=== PATIENT | female | born 1985 | race Caucasian/White ===

== ENCOUNTER 2022-10-09 19:45 | Inpatient (IN) ==
[2022-10-09] MEDS ORDERED: LACTATED RINGER'S 1,000 ML IV PRN (19:59)
[2022-10-09] MEDS ORDERED: OXYTOCIN 30 UNITS/500 ML BAG IV PRN ×2 (19:59→21:22)
[2022-10-09] MEDS ORDERED: LIDOCAINE 1% LOCAL 20 ML VIAL INFIL PRN (19:59)
[2022-10-09 20:23] LABS: Hematocrit (blood only) 34.1 % (34.1-44.9); Mean Corpuscular Hemoglobin 31.5 pg (25.0-34.0); Mean Corpuscular Hgb Conc 35.2 g/dL (32.0-36.0); Mean Corpuscular Volume 89.5 fL (80.0-100.0); Mean Platelet Volume 8.8 fL (9.4-12.3); Platelet Count 191 K/uL (130-400); RDW Standard Deviation 45.7 fL (36.4-46.3); Red Blood Count 3.81 M/uL (3.93-5.22)
[2022-10-09] MEDS ORDERED: miSOPROStoL 200 MCG TAB ONE (21:08)
[2022-10-09] MEDS ORDERED: METHYLERGONOVINE MALEATE 0.2 MG/ML AMP ONE (21:09)
[2022-10-09] MEDS ORDERED: IBUPROFEN 600 MG TAB PO ONE (21:20)
[2022-10-09] MEDS ORDERED: bisacodyL 10 MG SUPP PR PRN (21:22)
[2022-10-09] MEDS ORDERED: DIPHTHERIA/TETANUS/PERTUSSIS 0.5mL SYR/VIAL (Age 7+yrs) IM ONE (21:22)
[2022-10-09] MEDS ORDERED: METHYLERGONOVINE MALEATE 0.2 MG/ML AMP IM ONE (21:22)
[2022-10-09] MEDS ORDERED: miSOPROStoL 200 MCG TAB PR ONE (21:22)
[2022-10-09] MEDS ORDERED: BENZOCAINE 20% AER SPR 82.5 GM CAN EXT PRN (21:22)
[2022-10-09] MEDS ORDERED: ACETAMINOPHEN 325 MG TAB PO PRN (21:22)
[2022-10-09] MEDS ORDERED: HYDROCORTISONE ACETATE 25 MG SUPP PR PRN (21:22)
[2022-10-09] MEDS: IBUPROFEN 600 MG TAB PO PRN (21:27)
[2022-10-10] MEDS: IBUPROFEN 600 MG TAB PO PRN ×4 (02:52→18:14)
[2022-10-10 07:02] LABS: Hematocrit (blood only) 32.1 % (34.1-44.9); Hemoglobin 11.2 g/dl (12.0-16.0); Mean Corpuscular Hemoglobin 31.1 pg (25.0-34.0); Mean Corpuscular Hgb Conc 34.9 g/dL (32.0-36.0); Mean Corpuscular Volume 89.2 fL (80.0-100.0); Mean Platelet Volume 8.7 fL (9.4-12.3); Platelet Count 170 K/uL (130-400); RDW Coefficient of Variation 13.8 % (11.5-14.5); RDW Standard Deviation 45.4 fL (36.4-46.3); White Blood Count 6.84 K/ul (4.8-10.8)
--- NOTE | 2022-10-10 08:34 | Delivery Summary ---
DELIVERY NOTE: The patient delivered a live infant in left occiput anterior presentation. There was no nuchal cord. was delivered and placed on mother's abdomen. Delayed cord clamp was perfor med. Cord blood and cord gases were obtained. Infant's weight and Apgars are in the pediatric recor d. Placenta spontaneously delivered. Inspection of the placenta shows a normal-looking placenta wit h 3-vessel cord. Estimated blood loss was 450 mL. Inspection of the perineum showed a small first-degree laceration. Two [id number] sutures were used to obtain hemostasis with a 3-0 Vicryl. Rectal exam post-repai r showed good sphincter tone. No sutures are palpated in the rectum. The patient was sent to recovery on good hemostasis in stable condition. All instruments were remove d from the vagina and accounted for x2 including sponges, needles, and retractors. Job ID: [id number]
[2022-10-10] MEDS: PRENATAL VITAMIN 1 TAB PO SCH (08:51)
[2022-10-10] MEDS: DOCUSATE SODIUM 100 MG CAP PO SCH ×2 (08:51→20:00)
--- NOTE | 2022-10-10 10:52 | Obstetrical Progress Note ---
Date of Service October 10, 2022 Subjective Ambulation: ambulating normally Voiding: no voiding problems Passing Gas:: Yes Diet Tolerance:: regular diet Lochia:: Small Feeding Type:: breast feeding Current Pain Level(1-10): 0 doing well Physical Exam Constitutional WD/WN, vitals as above Gastrointestinal (Abdomen) Inspection/Auscultation: abdomen normal to inspection fundus firm below U. soft and non-tender Musculoskeletal Extremities: extremities normal to inspection Skin no rashes, warm and dry Neurologic patellar DTR's 2+ bilat, sensation intact Psychiatric A+Ox3, euthymic affect Results & Data ([facility]) Vital Signs (Past 12 Hours) Vital Signs Temp Pulse Pulse Resp BP BP Pulse Ox 10/10/22 07:23 36.5 C 57 L 20 98/59 L 96 10/10/22 03:15 36.6 C 65 18 97/66 L 98 10/09/22 23:15 36.6 C 56 L 16 114/78 98 10/09/22 22:58 36.7 C 18 10/09/22 22:58 66 114/63 10/09/22 22:55 53 L 110/62 O2 Del Method 10/10/22 07:23 Room Air 10/10/22 03:15 Room Air 10/09/22 23:15 Room Air 10/09/22 22:58 10/09/22 22:58 10/09/22 22:55 Laboratory Results 10/09/22 10/09/22 10/10/22 19:55 20:14 06:48 WBC 5.90 6.84 RBC 3.81 L 3.60 L Hgb 12.0 11.2 L Hct 34.1 32.1 L MCV 89.5 89.2 MCH 31.5 31.1 MCHC 35.2 34.9 RDW Std Deviation 45.7 45.4 RDW Coeff of Jey 14.0 13.8 Plt Count 191 170 MPV 8.8 L 8.7 L SARS-CoV-2, RNA, NAAT NEGATIVE
[2022-10-10] MEDS ORDERED: bisacodyL 5 MG TABEC PO SCH (20:00)
[2022-10-11] MEDS: IBUPROFEN 600 MG TAB PO PRN (00:05)
[2022-10-11 06:43] LABS: Hematocrit (blood only) 31.6 % (34.1-44.9); Hemoglobin 11.1 g/dl (12.0-16.0)
[2022-10-11] MEDS: DOCUSATE SODIUM 100 MG CAP PO SCH (08:50)
[2022-10-11] MEDS: PRENATAL VITAMIN 1 TAB PO SCH (08:51)
--- NOTE | 2022-10-11 09:42 | Obstetrical Progress Note ---
Date of Service October 11, 2022 Assessment & Plan Admission and Anticipated Discharge Date Admission Date: October 09, 2022 Subjective Patient is seen and examined. She feels well, no complaints. Ambulating without dizziness Voiding without difficulty Tolerating regular diet with out N&V Bleeding is minimal No fever/ chills/ CP/ SOB/ N&V/ Leg pain Breast feeding without problems Lab Results 10/09/22 10/09/22 10/10/22 Range/Units 19:55 20:14 06:48 WBC 5.90 6.84 (4.8-10.8) K/ul RBC 3.81 L 3.60 L (3.93-5.22) M/uL Hgb 12.0 11.2 L (12.0-16.0) g/dl Hct 34.1 32.1 L (34.1-44.9) % MCV 89.5 89.2 (80.0-100.0) fL MCH 31.5 31.1 (25.0-34.0) pg MCHC 35.2 34.9 (32.0-36.0) g/dL RDW Std Deviation 45.7 45.4 (36.4-46.3) fL RDW Coeff of Jey 14.0 13.8 (11.5-14.5) % Plt Count 191 170 (130-400) K/uL MPV 8.8 L 8.7 L (9.4-12.3) fL SARS-CoV-2, RNA, NAAT NEGATIVE (NEGATIVE) 10/11/22 Range/Units 06:28 WBC (4.8-10.8) K/ul RBC (3.93-5.22) M/uL Hgb 11.1 L (12.0-16.0) g/dl Hct 31.6 L (34.1-44.9) % MCV (80.0-100.0) fL MCH (25.0-34.0) pg MCHC (32.0-36.0) g/dL RDW Std Deviation (36.4-46.3) fL RDW Coeff of Jey (11.5-14.5) % Plt Count (130-400) K/uL MPV (9.4-12.3) fL SARS-CoV-2, RNA, NAAT (NEGATIVE) Vital Signs Temp Pulse Resp BP Pulse Ox O2 Del Method 10/11/22 09:01 36.5 C 56 L 16 102/66 99 10/11/22 08:05 36.5 C 56 L 16 102/66 99 Room Air 10/10/22 23:50 36.5 C 58 L 16 97/60 L Room Air PE: General: Alert, orientedx3, NAD Abd: soft, NT, fundus firm, below Umbilicus Perineum intact, Lochia rubra minimal Ext; NT, no edema AP: 37 yo s/p , ppd# 2 VSS Afebrile doing well Continue routine care All questions were answered D/C home , f/u in office Results & Data ([facility]) Vital Signs (Past 12 Hours) Vital Signs Temp Pulse Resp BP Pulse Ox O2 Del Method 10/11/22 09:01 36.5 C 56 L 16 102/66 99 10/11/22 08:05 36.5 C 56 L 16 102/66 99 Room Air 10/10/22 23:50 36.5 C 58 L 16 97/60 L Room Air
--- NOTE | 2022-10-24 07:09 | Coding Query ---
CODING QUERY To promote full compliance with coding requirements relating to patient care, provider participation is requested in all cases of journeyman electrician uncertainty. Please assist us with the question(s) below: Coding Question(s): please document weeks of gestation Physician's Response(s): 40.3 weeks Thank you Miarichard Reddy Principal Diagnosis: "that condition established after study, to be chiefly responsible for occasioning the admission of the patient to the hospital for care." Co-Existing Principal Diagnosis: "when two or more diagnoses equally meet the criteria for principal diagnosis as determined by the circumstances of admission, diagnostic work up, and/or therapy provided, and the Alphabetic Index, Tabular List, or another coding guideline does not provide sequencing direction, any one of the diagnoses may be sequenced first." "When the physician has documented what appears to be a current diagnosis in the body of the record, but has not included the diagnosis in the final diagnostic statement, the physician should be asked whether the diagnosis should be added." ([facility] 2 QTR90. p3-4) ARLETTE
== END 2022-10-11 10:30 | disposition home or self-care (01) | DRG 807 ==
LOC: OPB 19:45 → 4S1 19:50 → 4E2 23:00